=== PATIENT | female | born 1965 | race Two or more races ===

== ENCOUNTER 2017-07-06 16:19 | Emergency (ER) | payer SELFPAY ==
[~2017-07-06] VITALS: Ht 162.6 cm; Wt 131.5 kg
[2017-07-06 17:37] VITALS: BP 153/73
[2017-07-06] MEDS ORDERED: IPRATROPIUM BROM 0.5 MG/2.5ML INH SOL NEB ONE (18:00)
[2017-07-06] MEDS ORDERED: ALBUTEROL SULF 2.5 MG/0.5ML(0.5%) NEB SOLN NEB ONE (18:00)
[2017-07-06] MEDS ORDERED: methylPREDNISolone SOD SUCC 125 MG/2 ML VL IM ONE (18:45)
== END 2017-07-06 18:54 | disposition home or self-care (01) ==
LOC: ER 16:32
DX: J45.909 Unspecified asthma, uncomplicated (principal)
CPT/HCPCS: 71020; 96372; 99284; J2930

== ENCOUNTER 2025-02-05 07:49 | Inpatient (IN) | payer MEDICAID ==
[2025-02-05] VITALS (10 sets, daily range): BP systolic 95–129; BP diastolic 44–64; PULSE 66–78; RESP 14–24; TEMP 97.5–98.2; O2SAT 94–100
[~2025-02-05] VITALS: Ht 162.6 cm; Wt 138.8 kg
[~2025-02-05 07:49] MED LIST: HYDR-4902 PO; MECL-90 PO; METF-370 PO; METO25TA5 PO
[2025-02-05] MEDS ORDERED: IODIXANOL 320MG/ML 100ML BTL IV ONE (12:03)
[2025-02-05] MEDS ORDERED: fentaNYL CITRATE 100 MCG/2 ML VL ONE (12:05)
[2025-02-05] MEDS ORDERED: VERAPAMIL 2.5MG/ML INJ 2ML VIAL IV ONE (12:05)
[2025-02-05] MEDS ORDERED: HEPARIN SODIUM (PORCINE) 5000 UNITS/ML 1ML VIAL ONE (12:05)
[2025-02-05] MEDS ORDERED: ANGIOMAX 250 MG VIAL IV ONE (12:05)
[2025-02-05] MEDS ORDERED: MIDAZOLAM HCL 2MG/2ML 2ml VIAL (1mg/ml) ONE (12:05)
[2025-02-05] MEDS ORDERED: LIDOCAINE 2%HCL (LOCAL ANESTH.) INJ 20ML MDV ONE (12:06)
--- NOTE | 2025-02-05 13:36 | DVHOP2 ---
Operative Report - 2 Report Details Date: 02/05/25 Preop Diagnosis: CAD. Pulmonary hypertension. Postop Diagnosis: Pulmonary hypertension. Surgeon: Eugene Rocha MD Anesthesiologist: Conscious sedation Anesthesia: Mac, Local Consent: The patient was informed of the risks and benefits of the procedure. These include but are not limited to complications of anesthesia, postoperative infection, incomplete relief of symptoms, recurrence of symptoms, damage to blood vessels, nerves and tendons, deep venous thrombosis, pulmonary embolism and possible need for repeat surgery in the future. Complications: No complications Estimated Blood Loss: 2 cc Findings: Pulmonary hypertension Indications for Surgery: Pulmonary hypertension Name of Procedure Performed Left heart catheterization. Right heart catheterization. Bilateral cine coronary angiography. Left ventriculography. Procedure Details Procedure Details: Prior local anesthesia with 2% lidocaine to the right wrist and right antecubital area. The patient was prepped and draped in usual fashion followed by placement of a six German sheath in the antecubital vein and placement of a [place]-Maddie catheter into the right atrium right ventricle pulmonary artery and capillary wedge pressure positions where pressures were obtained and recorded. Cardiac outputs were determined by the thermodilution technique in triplicate. We will T saturations were not obtained. Through the radial artery six German sheath was placed. A Christopher catheter was used for ventriculography and cannulation of both right and left coronary ostia. Ventriculography was performed with a Christopher catheter was well. Hemodynamics: Aortic blood pressure was 110/70. End-diastolic pressure was 15- 20. There was no gradient across the aortic valve on pullback. The right atrial pressure was 10 with a right ventricular pressure 55/10 with a pulmonary artery pressure 55/25. Mean pressure proximally 32. Capillary wedge pressure was 15-20. Cardiac output by the thermodilution technique in triplicate. Cardiac output was 6.85. Coronary anatomy.: RCA is a large vessel it is normal in its proximal mid and distal segments. PDA and posterolateral branches are normal. Left main is large and normal. Left anterior descending is a large vessel it is normal in its proximal mid and distal segments. The PDA and posterolateral branches are normal. The circumflex is large with two marginals free of significant disease. Ventriculography: LV evaluation was performed. Ventriculography was performed in the DAVID projection. EF of 65% without wall motion abnormalities. Impression: Elevated left ventricular end-diastolic pressure at rest. Capillary wedge pressure and end-diastolic pressures are similar. Pulmonary hypertension noted. Elevated systolic pulmonary pressures. Normal left ventricular ejection fraction at rest. No significant coronary artery disease. Recommendations: Medical therapy is warranted continue with risk factor modification. Condition Good Disposition Still a Patient Date of Service: February 05, 2025 Billing Provider: EUGENE ROCHA Sr., MD Cardiology Common Codes: 68185-SABYNIA INP/OBS CARE (High) Cardiology Procedure Codes: 85204-JZAZ HEART CATH W/INTRA INJ, 77165-F/R & L HEART CATH FOR LVG, 18596-TNG & PLCMT OF FLOW DIR CATH EUGENE ROCHA Sr., MD February 05, 2025 13:36
[2025-02-05] MEDS: ONDANSETRON HCL 4 MG/2 ML VIAL IV ONE (15:45)
[2025-02-05] MEDS: LIDOCAINE VISCOUS 2% 15ML UD PO ONE (15:45)
[2025-02-05] MEDS: MIDAZOLAM HCL 2MG/2ML 2ml VIAL (1mg/ml) IV ONE (15:45)
[2025-02-05] MEDS: fentaNYL CITRATE 100 MCG/2 ML VL IV ONE (15:45)
[2025-02-05] MEDS: METOPROLOL TARTRATE 25 MG TAB PO SCH (21:48)
[2025-02-06] VITALS (12 sets, daily range): BP systolic 103–142; BP diastolic 38–73; PULSE 70–84; RESP 15–20; TEMP 97.4–97.8; O2SAT 92–99
--- NOTE | 2025-02-06 06:43 | DVH ---
INDICATION: per protocol/ MARIE TECHNIQUE: Frontal view of the chest. COMPARISON: None FINDINGS: . Cardiomegaly. There is no evidence of pleural disease. The lungs are clear. The bony structures of the chest are intact without fracture. IMPRESSION: 1. No evidence of acute disease.
[2025-02-06 07:11] LABS: Basophils # (auto) 0 10 ^3/uL (0-0.2); Eosinophils # (auto) 0.1 10 ^3/uL (0-0.8); Lymphocytes # (auto) 1.8 10 ^3/uL (0.4-5.4); Monocytes # (auto) 0.3 10 ^3/uL (0-1.3)
[2025-02-06 07:13] LABS: Basophils % (auto) 0.6 % (0.0-2.0); Eosinophils % (auto) 2.2 % (0.0-7.0); Hemoglobin 12.5 g/dL (12.2-16.2); Lymphocytes % (auto) 36.2 % (10.0-50.0); Mean Corpuscular Hemoglobin 25.7 pg (28.0-32.0); Mean Corpuscular Volume 77.9 fL (80.0-100.0); Monocytes % (auto) 6.3 % (0.0-12.0); Neutrophils # (auto) 2.8 10 ^3/uL (1.6-8.6); Neutrophils % (auto) 54.7 % (37.0-80.0); Nucleated Red Blood Cells % 0.1 %; Platelet Count (auto) 107 10^3/uL (140-450); Red Blood Cells 4.88 10^6/uL (4.0-5.20); Red Cell Distribution Width 15.5 % (11.8-14.3); White Blood Cell 5.1 10^3/uL (4.4-10.8)
[2025-02-06 07:19] LABS: INR 1.02 (0.9-1.15); Partial Thromboplastin Time 29.7 SEC (24.5-34.5); Prothrombin Time 10.8 sec (9.3-11.8)
[2025-02-06 07:20] LABS: Albumin 3.8 g/dL (3.2-4.8); Alkaline Phosphatase 73 U/L (46-116); Anion Gap 8 (5-15); Aspartate Aminotransferase 38 U/L (13-40); BUN/Creatinine Ratio 27.1 (10.0-20.0); Bilirubin, Total 0.6 mg/dL (0.2-1.0); Blood Urea Nitrogen 16 mg/dL (9-23); Calcium 9.1 mg/dL (8.7-10.4); Carbon Dioxide 26 mmol/L (20-31); Chloride 106 mmol/L (98-107); Potassium 3.7 mmol/L (3.5-5.1); Sodium 140 mmol/L (136-145); Total Protein 6.5 g/dL (5.7-8.2)
[2025-02-06 07:22] LABS: Alanine Aminotransferase 46 U/L (7-40); Glucose 112 mg/dL (74-106)
[2025-02-06] MEDS: MIDAZOLAM HCL 2MG/2ML 2ml VIAL (1mg/ml) IV ONE (07:45)
[2025-02-06] MEDS: LIDOCAINE VISCOUS 2% 15ML UD PO ONE (07:45)
[2025-02-06] MEDS: fentaNYL CITRATE 100 MCG/2 ML VL IV ONE (07:45)
--- NOTE | 2025-02-06 09:30 | DVHOP2 ---
Operative Report - 2 Report Details Date: 02/06/25 Preop Diagnosis: CAD. Pulmonary hypertension. Postop Diagnosis: Pulmonary hypertension. Surgeon: Eugene Rocha MD Anesthesiologist: Conscious sedation Anesthesia: Mac, Local Consent: The patient was informed of the risks and benefits of the procedure. These include but are not limited to complications of anesthesia, postoperative infection, incomplete relief of symptoms, recurrence of symptoms, damage to blood vessels, nerves and tendons, deep venous thrombosis, pulmonary embolism and possible need for repeat surgery in the future. Complications: No complications Estimated Blood Loss: 2 cc Name of Procedure Performed Transesophageal echocardiogram. Procedure Details Procedure Details: PriorFull informed consent obtained the patient was prepped and draped in usual fashion. Place in the left lateral and semi-Rodriguez position. Patient was given lidocaine Two gargle. Transesophageal probe was passed after conscious sedation given. Standard views obtained. No complications. Conclusions 1. Technically good study. Sinus rhythm. Right atrial and right ventricular enlargement. Mild concentric LVH. Left ventricular function is preserved at 60% with normal RV function. Doppler reveals moderate tricuspid regurgitation. No mitral or aortic insufficiency. There is no pericardial effusion masses or vegetations. Doppler does not reveal an atrial septal or ventricular septal defect. Bubble study is positive. There was crossover of bubbles from the right to the left atrium. It appears that the bubbles originate into the left atrium /crossing over from the lower atrial septum. Possibly from a primum septal defect repaired in childhood. No ventricular septal defect and/or other abnormalities noted. Recommendations: Patient will initiate pulmonary hypertension medication as an outpatient. Condition Good Disposition Home Date of Service: February 06, 2025 Billing Provider: EUGENE ROCHA Sr., MD Cardiology Common Codes: 42285-TDRESACVSO INP/OBS CARE(Mod) Cardiology Procedure Codes: 69817-COF W/IMG DOC INCL PROB ACQ (Bubble study to evaluate ASD.) EUGENE ROCHA Sr., MD February 06, 2025 09:30
--- NOTE | 2025-02-06 12:40 | DVHHP2 ---
History of Present Illness Reason for Visit: Left heart catheterization History of Present Illness 59-year-old female with a known history of coronary artery disease, pulmonary hypertension, history of open heart surgery for atrial septal defect when she was 10-year-old, diabetes mellitus type 2, hypertension, morbid obesity class III who was brought in by Cardiology for elective procedure. Patient is currently left heart catheterization which shows evidence of moderate pulmonary hypertension. Patient is currently denies any chest pain shortness of breath. Cardiovascular: CAD, HTN Endocrine: Diabetes Past Surgical History: Hysterectomy, Other (Open heart surgery for atrial septal defect at the age of 10 year) Family History: None ALCOHOL: none Drugs: None Review of Systems Review of Systems 12 review of system are negative besides mentioned above. Allergies: Coded Allergies: Levofloxacin (Verified Allergy, Unknown, Itching, 01/31/25) Medications Current Medications Medications Dose Ordered Sig/Owen Route Start Time Stop Time Status Last Admin Dose Admin Metoprolol Tartrate 25 mg BID PO 02/05/25 22:00 02/06/25 11:04 25 MG Exam Vital Signs Vital Signs Date Time Temp Pulse Resp B/P (MAP) Pulse Ox O2 Delivery O2 Flow Rate FiO2 02/06/25 11:04 76 142/57 02/06/25 09:30 20 97 02/06/25 09:00 97.5 97.5 02/06/25 08:00 Room Air* 0 21 Exam HEENT pupils are reactive Neck is supple CVS S1-S2 regular rate and rhythm Respiratory Diminished breath sounds at lung bases GI positive bowel sound obese Extremity no edema [employer] no motor deficit Labs/Xrays Labs Test 02/06/25 06:20 Range/Units White Blood Count 5.1 4.4-10.8 10^3/uL Red Blood Count 4.88 4.0-5.20 10^6/uL Hemoglobin 12.5 12.2-16.2 g/dL Hematocrit 38.0 36.0-46.0 % Mean Corpuscular Volume 77.9 L 80.0-100.0 fL Mean Corpuscular Hemoglobin 25.7 L 28.0-32.0 pg Mean Corpuscular Hemoglobin Concent 33.0 32.0-36.0 g/dL Red Cell Distribution Width 15.5 H 11.8-14.3 % Platelet Count 107 L 140-450 10^3/uL Mean Platelet Volume 10.3 6.9-10.8 fL Neutrophils (%) (Auto) 54.7 37.0-80.0 % Lymphocytes (%) (Auto) 36.2 10.0-50.0 % Monocytes (%) (Auto) 6.3 0.0-12.0 % Eosinophils (%) (Auto) 2.2 0.0-7.0 % Basophils (%) (Auto) 0.6 0.0-2.0 % Neutrophils # (Auto) 2.8 1.6-8.6 10 ^3/uL Lymphocytes # (Auto) 1.8 0.4-5.4 10 ^3/uL Monocytes # (Auto) 0.3 0-1.3 10 ^3/uL Eosinophils # (Auto) 0.1 0-0.8 10 ^3/uL Basophils # (Auto) 0 0-0.2 10 ^3/uL Nucleated Red Blood Cells 0.1 % Prothrombin Time 10.8 9.3-11.8 sec Prothrombin Time INR 1.02 0.9-1.15 Activated Partial Thromboplast Time 29.7 24.5-34.5 SEC Sodium Level 140 136-145 mmol/L Potassium Level 3.7 3.5-5.1 mmol/L Chloride Level 106 98-107 mmol/L Carbon Dioxide Level 26 20-31 mmol/L Anion Gap 8 5-15 Blood Urea Nitrogen 16 9-23 mg/dL Creatinine 0.59 0.550-1.02 mg/dL Glomerular Filtration Rate Calc 102 >90 mL/min BUN/Creatinine Ratio 27.1 H 10.0-20.0 Serum Glucose 112 H 74-106 mg/dL Calcium Level 9.1 8.7-10.4 mg/dL Total Bilirubin 0.6 0.2-1.0 mg/dL Aspartate Amino Transferase (AST) 38 13-40 U/L Alanine Aminotransferase (ALT) 46 H 7-40 U/L Alkaline Phosphatase 73 46-116 U/L Total Protein 6.5 5.7-8.2 g/dL Albumin 3.8 3.2-4.8 g/dL Assessment/Plan Assessment/Plan 59-year-old female with a known history of open heart surgery for atrial septal defect, coronary artery disease, pulmonary hypertension, diabetes mellitus type 2, hypertension, morbid obesity classIII who presented to the hospital for elective procedure. 1. Coronary artery disease status post left heart catheterization shows pulmonary hypertension 2. Pulmonary hypertension 3. History of open heart surgery status post atrial septal defect 4. Diabetes mellitus type 2 5. Hypertension 6. Morbid obesity classIII -continue home medications, follow up Cardiology recommendations. Plan discussed with: Patient My Orders Orders - BRENDA CUEVA MD Procedure Category Date Status Time Cardiac DIET 02/06/25 Transmitted Diet-2gna,Lofat,Lochol Lunch Date of Service: February 05, 2025 Billing Provider: BRENDA CUEVA MD Common Visit Codes: NOT BILLABLE BRENDA CUEVA MD February 06, 2025 12:40
--- NOTE | 2025-02-08 16:29 | DVHDS2 ---
Discharge Summary Date of Admission February 05, 2025 at 18:32 Date of Discharge: February 06, 2025 Labs/Diagnostic Data: Laboratory Results Test 02/06/25 06:20 White Blood Count 5.1 10^3/uL (4.4-10.8) Red Blood Count 4.88 10^6/uL (4.0-5.20) Hemoglobin 12.5 g/dL (12.2-16.2) Hematocrit 38.0 % (36.0-46.0) Mean Corpuscular Volume 77.9 fL (80.0-100.0) Mean Corpuscular Hemoglobin 25.7 pg (28.0-32.0) Mean Corpuscular Hemoglobin Concent 33.0 g/dL (32.0-36.0) Red Cell Distribution Width 15.5 % (11.8-14.3) Platelet Count 107 10^3/uL (140-450) Mean Platelet Volume 10.3 fL (6.9-10.8) Neutrophils (%) (Auto) 54.7 % (37.0-80.0) Lymphocytes (%) (Auto) 36.2 % (10.0-50.0) Monocytes (%) (Auto) 6.3 % (0.0-12.0) Eosinophils (%) (Auto) 2.2 % (0.0-7.0) Basophils (%) (Auto) 0.6 % (0.0-2.0) Neutrophils # (Auto) 2.8 10 ^3/uL (1.6-8.6) Lymphocytes # (Auto) 1.8 10 ^3/uL (0.4-5.4) Monocytes # (Auto) 0.3 10 ^3/uL (0-1.3) Eosinophils # (Auto) 0.1 10 ^3/uL (0-0.8) Basophils # (Auto) 0 10 ^3/uL (0-0.2) Nucleated Red Blood Cells 0.1 % Prothrombin Time 10.8 sec (9.3-11.8) Prothrombin Time INR 1.02 (0.9-1.15) Activated Partial Thromboplast Time 29.7 SEC (24.5-34.5) Sodium Level 140 mmol/L (136-145) Potassium Level 3.7 mmol/L (3.5-5.1) Chloride Level 106 mmol/L (98-107) Carbon Dioxide Level 26 mmol/L (20-31) Anion Gap 8 (5-15) Blood Urea Nitrogen 16 mg/dL (9-23) Creatinine 0.59 mg/dL (0.550-1.02) Glomerular Filtration Rate Calc 102 mL/min (>90) BUN/Creatinine Ratio 27.1 (10.0-20.0) Serum Glucose 112 mg/dL (74-106) Calcium Level 9.1 mg/dL (8.7-10.4) Total Bilirubin 0.6 mg/dL (0.2-1.0) Aspartate Amino Transferase (AST) 38 U/L (13-40) Alanine Aminotransferase (ALT) 46 U/L (7-40) Alkaline Phosphatase 73 U/L (46-116) Total Protein 6.5 g/dL (5.7-8.2) Albumin 3.8 g/dL (3.2-4.8) Other Laboratory Tests 02/06/25 06:20 Brief Hx & Hospital Course: 59-year-old female with a known history of open heart surgery for atrial septal defect, coronary artery disease, pulmonary hypertension, diabetes mellitus type 2, hypertension, morbid obesity classIII who presented to the hospital for elective procedure. Patient underwent left heart catheterization which shows pulmonary hypertension. Patient is currently cleared by Cardiology to be discharged with a close follow up as an outpatient with a [facility] for the treatment of pulmonary hypertension. Condition at Discharge: Stable Final Diagnosis/Problems List 59-year-old female with a known history of open heart surgery for atrial septal defect, coronary artery disease, pulmonary hypertension, diabetes mellitus type 2, hypertension, morbid obesity classIII who presented to the hospital for elective procedure. 1. Coronary artery disease status post left heart catheterization shows pulmonary hypertension 2. Pulmonary hypertension 3. History of open heart surgery status post atrial septal defect 4. Diabetes mellitus type 2 5. Hypertension 6. Morbid obesity classIII Discharge Disposition: Home SNF Discharge Will this Physician continue t: No Discharge Instruct/Medications Diet: Cardiac 2g Na,low cholest Diet comment: 1800 ADA diet Activity: No Restrictions, As Tolerated Follow Up/Referral: Follow up with the PCP, Dr. Rocha in 1-2 weeks. Medications: Resume home medications Discharge Statement: "Patient was advised to return to the ER or call 911 if any headaches, dizziness, shortness of breath, chest pain, abdominal pain, bleeding, fevers, or worsening of medical condition. Patient was counseled about treatment plan, medications, possible side effects, patientverbalized understanding. All questions were answered to the best of my ability. This discharge took greater then 30 minutes in planning, reviewing documentation, counseling the patient, and discussing with other team members." ASSESSMENT ASSESSMENT Assessment 59-year-old female with a known history of open heart surgery for atrial septal defect, coronary artery disease, pulmonary hypertension, diabetes mellitus type 2, hypertension, morbid obesity classIII who presented to the hospital for elective procedure. 1. Coronary artery disease status post left heart catheterization shows pulmonary hypertension 2. Pulmonary hypertension 3. History of open heart surgery status post atrial septal defect 4. Diabetes mellitus type 2 5. Hypertension 6. Morbid obesity classIII Date of Service: February 06, 2025 Billing Provider: BRENDA CUEVA MD Common Visit Codes: NOT BILLABLE BRENDA CUEVA MD February 08, 2025 16:29
== END 2025-02-06 16:43 | disposition home or self-care (01) | DRG 192 ==
LOC: CATH 07:49 → OVERFLOW 18:32 → TELE-WESTW 21:07
PROVIDERS: ADMIT Internal Medicine; ATTEND Internal Medicine
PROC: 4A023N8 Measurement of Cardiac Sampling and Pressure, Bilateral, Percutaneous Approach (ICD-10-PCS; principal; 2025-02-05)
PROC: B211YZZ Fluoroscopy of Multiple Coronary Arteries using Other Contrast (ICD-10-PCS; 2025-02-05)
PROC: B215YZZ Fluoroscopy of Left Heart using Other Contrast (ICD-10-PCS; 2025-02-05)
PROC: B24BZZ4 Ultrasonography of Heart with Aorta, Transesophageal (ICD-10-PCS; 2025-02-06)
DX: I27.20 Pulmonary hypertension, unspecified (principal); Z68.43 Body mass index [BMI] 50.0-59.9, adult; I25.10 Atherosclerotic heart disease of native coronary artery without angina pectoris; E11.9 Type 2 diabetes mellitus without complications; E66.813 Obesity, class 3; I07.1 Rheumatic tricuspid insufficiency; Z90.710 Acquired absence of both cervix and uterus; Z88.1 Allergy status to other antibiotic agents; Z79.899 Other long term (current) drug therapy
CPT/HCPCS: 36415; 71045; 80053; 85025; 85610; 85730; 86850; 86900; 86901; 93312; 93460; 99152; G0378; J2250; J2405; Q9967

== ENCOUNTER → 2025-02-11 | Outpatient (CLI) | payer MEDICAID | END | disposition home or self-care (01) | LOC: XYW 15:09 | PROVIDERS: ATTEND Internal Medicine | DX: J44.9 Chronic obstructive pulmonary disease, unspecified (principal); R06.02 Shortness of breath; R05.9 Cough, unspecified; F17.210 Nicotine dependence, cigarettes, uncomplicated; Z79.51 Long term (current) use of inhaled steroids | CPT/HCPCS: 94060; 94727 ==